=== PATIENT | female | born 1945 ===

== ENCOUNTER 2017-04-28 10:49 | Emergency (ER) | payer MEDICARE ==
[2017-04-28 10:55] VITALS: BP 114/73; PULSE 95; RESP 20; TEMP 98.7; O2SAT 98
--- NOTE | 2017-04-28 12:24 | RAD ---
PROCEDURE: Right Foot Radiographs. HISTORY: injury COMPARISON: None. FINDINGS: BONES: No acute fracture. JOINTS: Unremarkable. SOFT TISSUES: Normal. OTHER FINDINGS: None. IMPRESSION: No demonstrated fracture or dislocation.
--- NOTE | 2017-04-28 12:25 | RAD ---
PROCEDURE: Right Ankle Radiographs. HISTORY: injury COMPARISON: None FINDINGS: BONES: No acute fracture. JOINTS: Ankle mortise maintained. Talar dome intact SOFT TISSUES: Lateral malleolar soft tissue swelling. OTHER FINDINGS: None. IMPRESSION: Lateral malleolar soft tissue swelling without demonstrated fracture or dislocation.
--- NOTE | 2017-04-28 12:28 | ED PDOC ---
Lower Extremity Pain/Injury Time Seen by Provider: 04/28/17 12:15 Chief Complaint (Nursing): Lower Extremity Problem/Injury Chief Complaint (Provider): ankle injury Onset/Duration Of Symptoms: Days (1), Persistent Current Symptoms Are (Timing): Still Present - Ankle/Foot Description Of Injury: Twisted Currently Unable To: Bear Weight, Straighten Alleviating Factor(s): Ice Therapy, Elevation, OTC Pain Medication Feet: 1 - pain/swelling - Risk Factors DVT Risk Factors: Pos: None Past Medical History Reviewed: Historical Data, Nursing Documentation, Vital Signs Vital Signs: Last Vital Signs Temp 98.7 F 04/28/17 10:54 Pulse 95 H 04/28/17 10:54 Resp 20 04/28/17 10:54 BP 114/73 04/28/17 10:54 Pulse Ox 98 04/28/17 10:54 - Medical History PMH: Anxiety, Arthritis, Fibromyalgia, Gastritis, HTN - Family History Family History: States: No Known Family Hx - Home Medications Home Medications: Ambulatory Orders Medication Instructions Recorded Alprazolam 0.5 mg PO DAILY PRN 08/12/14 Aspirin [Ecotrin] 325 mg PO DAILY 08/12/14 Celecoxib [celeBREX] 1 cap PO BID PRN 08/12/14 Esomeprazole Magnesium [Nexium] 40 mg PO DAILY 08/12/14 Metoprolol Tartrate 25 mg PO DAILY 08/12/14 Olmesartan/Amlodipin/Hcthiazid 12.5 mg PO DAILY 08/12/14 [Tribenzor 10 mg-12.5 mg-40 mg] Venlafaxine [Effexor XR] 150 mg PO DAILY 08/12/14 Tramadol Hydrochloride [Tramadol] 1 tab PO Q8 PRN #15 tab 08/13/14 diaZEpam [Valium] 5 mg PO Q6 PRN #10 tab 08/13/14 Naproxen [Naprosyn] 500 mg PO TID #30 tablet 04/28/17 - Allergies Allergies/Adverse Reactions: Allergies Allergy/AdvReac Type Severity Reaction Status Date / Time No Known Allergies Allergy Verified 04/28/17 11:18 Review of Systems ROS Statement: Except As Marked, All Systems Reviewed And Found Negative Musculoskeletal: Positive for: Foot Pain, Other (ankle pain) Physical Exam - Reviewed Nursing Documentation Reviewed: Yes Vital Signs Reviewed: Yes - Physical Exam Appears: Positive for: Well, Non-toxic, No Acute Distress Head Exam: Positive for: ATRAUMATIC, NORMAL INSPECTION, NORMOCEPHALIC Skin: Positive for: Normal Color, Warm, DRY Extremity: Positive for: Other (right foot: swelling mild to orsum of foot and mild ankle swelling. nuerovasc intact) Neurologic/Psych: Positive for: Alert, Oriented - ECG O2 Sat by Pulse Oximetry: 98 - Radiology X-Ray: Interpreted by Me, Read By Radiologist X-Ray Interpretation: No Acute Disease Medical Decision Making Medical Decision Making: dx: sprain tx: aircast f.u with podiatry. Disposition - Clinical Impression Clinical Impression: Ankle sprain - Patient ED Disposition Is Patient to be Admitted: No Counseled Patient/Family Regarding: Studies Performed, Diagnosis, Need For Followup, Rx Given - Disposition Referrals: Podiatry Clinic [Outside] Disposition: Routine/Home Disposition Time: 12:30 Condition: STABLE Prescriptions: Naproxen [Naprosyn] 500 mg PO TID #30 tablet Instructions: Foot Sprain (ED)
== END 2017-04-28 13:30 | disposition home or self-care (01) ==
LOC: H.ER 10:49
DX: S99.911A Unspecified injury of right ankle, initial encounter (principal); X50.9XXA Other and unspecified overexertion or strenuous movements or postures, initial encounter; Y92.89 Other specified places as the place of occurrence of the external cause; M79.7 Fibromyalgia; F41.9 Anxiety disorder, unspecified; I10 Essential (primary) hypertension; Z79.82 Long term (current) use of aspirin